=== PATIENT | male | born 1995 | race Hispanic/Latino ===

== ENCOUNTER 2024-03-12 00:26 | Emergency (ER) | payer SELFPAY ==
[2024-03-12] VITALS (8 sets, daily range): BP systolic 146–179; BP diastolic 87–98; PULSE 65–112; RESP 16–20; TEMP 36.7; O2SAT 96–100
--- NOTE | ~2024-03-12 | XR_ITS ---
Portable chest x-ray Comparison: None Clinical History: Shortness of breath Findings: Lungs are clear, without focal consolidation or pleural effusion. Cardiomediastinal silho uette is unremarkable. Bones and soft tissues are unremarkable. Impression: Normal chest. Reviewed, dictated and finalized at [facility]. Impression: Normal chest.
[2024-03-12 07:16] LABS: Influenza A QL RT-PCR Negative (Negative); Influenza B QL RT-PCR Negative (Negative); RSV RNA, RT-PCR Negative (Negative); SARS-CoV-2 RNA PCR Negative (Negative)
--- NOTE | 2024-03-12 07:21 | ED.URI ---
HPI - URI/Sore Throat General Chief Complaint: Upper Respiratory Infection Stated Complaint: sob Time Seen by Provider: 03/12/24 07:16 History of Present Illness HPI Narrative: 28-year-old male presents to the emergency department for evaluation of difficulty in breathing. He is accompanied by his family members who are primary historical figures. Patient himself has not seen a physician in many years and has no chronic medical conditions according to the family. He himself states that he has been having difficulty breathing since last night. He is very wheezy but has no diagnosis of asthma to their knowledge. Not have any inhalers or albuterol treatments at home. Has been trying TheraFlu, Tylenol, Tessalon Perles for his shortness of breath and cough. Is endorsing a chest tightness sensation with pain is ribcage when he coughs. Cough is nonproductive. Denies any present chest pain shortness a breath at rest. No nausea, vomiting, headache, vision change, abdominal pain, back pain, fever, chills. Was otherwise in his normal state of health. Related Data Allergies Allergy/AdvReac Type Severity Reaction Status Date / Time No Known Allergies Allergy Verified 03/12/24 00:27 Review of Systems Review of Systems: As reviewed above in HPI Exam Narrative: GENERAL: [Well-appearing, well-nourished, and in no acute distress.] HEAD: [Normocephalic, atraumatic.] EYES: [PERRLA and EOMI.] ENT: Nares clear, no rhinorrhea or epistaxis. Mucous membranes moist. NECK: Supple. CHEST: Diffuse end-expiratory and inspiratory wheezing throughout all lung mathis, good air entry throughout. No accessory muscles of respiration. No tachypnea. HEART: [Regular rate and rhythm]. No murmur heard. [Normal peripheral pulses.] ABDOMEN: [Soft, nondistended], [nontender], [No rigidity or guarding] EXTREMITIES: Normal range of motion. [No edema.] SKIN: Warm, dry, no rash. NEURO: [No focal deficits]. Alert and oriented [x3.] PSYCH: [Normal mood and affect.] Course Vital Signs Vital signs: Vital Signs Temperature 36.7 C 03/12/24 00:31 Pulse Rate 86 03/12/24 00:31 Respiratory Rate 20 03/12/24 00:31 Blood Pressure 169/98 H 03/12/24 00:31 Pulse Oximetry 98 03/12/24 00:31 Oxygen Delivery Room Air 03/12/24 00:31 Temperature 36.7 C 03/12/24 00:31 Pulse Rate 112 H 03/12/24 09:15 Respiratory Rate 16 03/12/24 09:15 Blood Pressure 179/98 H 03/12/24 09:15 Pulse Oximetry 97 03/12/24 09:15 Oxygen Delivery Room Air 03/12/24 00:31 MDM - URI/Sore Throat MDM Narrative Medical decision making narrative: 28-year-old male with no reported chronic medical conditions who presents to the emergency department with URI symptoms concomitant with wheezing diffusely throughout all lung mathis. He has never been told he has asthma but he does not seek medical attention does not see doctors in many years according to the family. He is not working to breathe and has normal reassuring vital signs aside from a high blood pressure 169/98. No reported history of hypertension, asthma, COPD or other chronic conditions. Ostensibly patient likely has some kind of upper respiratory infection or reactive airway disease concomitant with his wheezing which will be addressed with nebulizer treatments including albuterol and ipratropium follow-up by Solu-Medrol IV push. CBC, BMP and magnesium levels were ordered. COVID fluid RSV swabs were obtained as well as x-ray. X-ray was independently reviewed by myself which shows no signs of consolidation, pneumonia or pleural effusions. COVID fluid RSV swabs were negative. Patient is very minor leukocytosis of 10.2 chemistry panel shows some dehydration but normal renal function panel. Normal glucose. Normal magnesium. Patient was re-evaluated after nebulizer treatments and had significant improvement in his aeration. No longer wheezing, expressing significant improvement in his complaints. At t
[2024-03-12 07:35] LABS: Basophils Absolute Auto 0.1 K/mm3 (0.0-0.1); Basophils Percent Auto 0.6 % (0.2-1.2); Eosinophils Absolute Auto 0.7 K/mm3 (0-0.3); Hematocrit 44.8 % (42.0-52.0); Hemoglobin 15.6 g/dL (14.0-18.0); Immature Granulocyte Absolute 0.04 K/mm3 (0.00-0.031); Immature Granulocyte Percent A 0.4 % (0-0.5); Lymphocytes Absolute Auto 2.74 K/mm3 (0.9-3.2); Lymphocytes Percent Auto 26.9 % (18.3-44.2); Mean Corpuscular HGB Conc 34.8 g/dl (32-36); Mean Corpuscular Hemoglobin 31.8 pg (26-34); Mean Corpuscular Volume 91.2 fl (80-100); Mean Platelet Volume 9.1 fl (7.4-10.4); Monocytes Absolute Auto 0.9 K/mm3 (0.1-0.6); Monocytes Percent Auto 8.7 % (2.6-8.5); Neutrophils Absolute Auto 5.7 K/mm3 (1.3-6.7); Neutrophils Percent Auto 56.4 % (45.5-73.1); Platelet Count Result 312 k/mm3 (150-375); Red Blood Count 4.91 M/mm3 (4.6-6.20); Red Cell Distribution Width 12.9 % (11.5-14.5); White Blood Count 10.2 K/mm3 (4.5-10.0)
[2024-03-12 07:46] LABS: Anion Gap 8 mmol/L (4-12); Blood Urea Nitrogen 12 mg/dL (9-20); Calcium 9.2 mg/dL (8.4-10.2); Carbon Dioxide 30 mmol/L (22-30); Chloride 92 mmol/L (98-107); Estimated CRCL calculation 123 ml/min; Estimated Glomerular Filt Rate > 60; Glucose 98 mg/dL (65-110); Magnesium 1.9 mg/dL (1.6-2.3); Potassium 3.7 mmol/L (3.4-5.0); Sodium 130 mmol/L (137-145)
[2024-03-12] MEDS: IPRATROPIUM 0.5 MG/ALBUTEROL SULFATE 2.5 MG AMPUL.NEB 3 ML INHALATION ×3 (07:53→07:54)
[2024-03-12] MEDS: IPRATROPIUM BR 0.02% INH SOLN 0.5 MG/2.5 ML VIAL INHALATION ×3 (07:53→07:54)
[2024-03-12] MEDS: methylPREDNISolone SOD SUCC 125 MG VIAL 40 MG IV PUSH (08:08)
[2024-03-12] MEDS: SODIUM CHLORIDE 0.9% IV 1,000 ML 999 ML IV CONT (08:08)
== END 2024-03-12 10:30 | disposition home or self-care (01) ==
PROVIDERS: Emergency Medicine; Emergency Provider Student in an Organized Health Care Education/Training Program
DX: J06.9 Acute upper respiratory infection, unspecified (principal); J45.909 Unspecified asthma, uncomplicated; Z20.822 Contact with and (suspected) exposure to COVID-19
CPT/HCPCS: 36415; 71045; 80048; 83735; 85025; 87637; 94640; 96361; 96374; 99284; J2919; J7030